=== PATIENT | female | born 1980 | race Caucasian/White ===

== ENCOUNTER 2017-06-10 10:02 | Emergency (ER) | payer MEDICAID ==
[~2017-06-10] VITALS: Ht 167.6 cm; Wt 61.6 kg
[2017-06-10] MEDS ORDERED: ESTR1TAB15 PO (10:31)
[2017-06-10] MEDS ORDERED: BUPR1FIL SL (10:31)
[2017-06-10 10:52] LABS: BASOPHILS # (AUTO) 0.08 x10^3/uL (0-0.1); BASOPHILS % (AUTO) 1 % (0-1); EOSINOPHILS # (AUTO) 0.05 x10^3/uL (0-0.4); EOSINOPHILS % (AUTO) 1 % (1-7); LYMPHOCYTES # (AUTO) 2.41 x10^3/uL (1-3.4); LYMPHOCYTES % (AUTO) 34 % (22-44); MD NO; MEAN CORPUSCULAR HEMOGLOBIN 28.5 pg (27.0-34.8); MEAN CORPUSCULAR HGB CONC 33.5 g/dL (32.4-35.8); MEAN PLATELET VOLUME 7.4 fL (7.4-10.4); MONOCYTES % (AUTO) 7 % (2-9); NEUTROPHILS # (AUTO) 4.04 x10^3/uL (1.8-6.8); NEUTROPHILS % (AUTO) 57 % (42-75); PLATELET COUNT 314 x10^3/uL (130-400); RED CELL DISTRIBUTION WIDTH 14.9 % (9.6-15.2)
[2017-06-10 11:05] LABS: ALANINE AMINOTRANSFERASE 19 U/L (12-78); ALBUMIN 3.4 g/dL (3.4-5.0); ANION GAP 7 mmol/L (5-15); CALCIUM 8.3 mg/dL (8.5-10.1); CHLORIDE 111 mmol/L (98-107); CREATININE 0.87 mg/dL (0.55-1.02)
[2017-06-10 11:09] LABS: ALKALINE PHOSPHATASE 71 U/L (45-117); BILIRUBIN,TOTAL 0.4 mg/dL (0.2-1.0); TOTAL PROTEIN 7.4 g/dL (6.4-8.2); TROPONIN I < 0.015 ng/mL (0.000-0.045)
[2017-06-10 13:37] LABS: AMPHETAMINE SCREEN, URINE Negative (Negative); BARBITURATE SCREEN, URINE Negative (Negative); BENZODIAZEPINE SCREEN, URINE Positive (Negative); CANNABINOID SCREEN, URINE Positive (Negative); COCAINE SCREEN, URINE Negative (Negative); METHADONE SCREEN, URINE Negative (Negative); OPIATE SCREEN, URINE Negative (Negative)
[2017-06-10] MEDS ORDERED: POTASSIUM CHLORIDE 20 MEQ TAB.ER.PRT ONE (13:53)
[2017-06-10 13:57] VITALS: BP 129/80
[2017-06-10] MEDS ORDERED: POTASSIUM CHLORIDE 20 MEQ TAB.ER.PRT PO ONE (14:00)
== END 2017-06-10 14:44 | disposition home or self-care (01) ==
LOC: ED 13:09
DX: F15.121 Other stimulant abuse with intoxication delirium (principal); F11.121 Opioid abuse with intoxication delirium; Z79.899 Other long term (current) drug therapy; F17.200 Nicotine dependence, unspecified, uncomplicated
CPT/HCPCS: 36415; 71045; 80053; 80307; 82962; 84484; 85025; 93005; 99285